=== PATIENT | female | born 1975 | race Caucasian/White ===

== ENCOUNTER 2020-05-21 11:48 | Outpatient (CLI) | payer BC, SELFPAY ==
--- NOTE | ~2020-05-21 | MM_ITS ---
EXAMINATION: MM screening malcom BI w catie HISTORY: Screening mammogram TECHNIQUE: Craniocaudal and mediolateral oblique 3-D tomosynthesis images were obtained and synthetic 2-D images were generated. CAD analysis was submitted and interpreted. COMPARISON: No prior mammogram is available for comparison at this institution. BREAST PARENCHYMAL COMPOSITION: There are scattered areas of fibroglandular density. FINDINGS: There is asymmetry in the upper outer left breast. Comparison with prior mammogram is recom mended. Otherwise no suspicious mass, architectural distortion, malignant calcification, skin thickening or r etraction of either breast is evident. IMPRESSION: 1. Nonspecific asymmetry of the upper outer quadrant of the left breast 2. Comparison with any prior available mammogram is recommended. BI-RADS Category 0: Incomplete: Needs additional imaging evaluation. Reviewed, dictated and finalized at location A. R ASSEMBLER
== END 2020-05-21 11:49 | disposition home or self-care (01) ==
LOC: ANHIMG 11:51
PROVIDERS: PCP Family Medicine; Visit Provider Obstetrics & Gynecology
DX: Z12.31 Encounter for screening mammogram for malignant neoplasm of breast (principal); R92.8 Other abnormal and inconclusive findings on diagnostic imaging of breast
CPT/HCPCS: 77063; 77067

== ENCOUNTER 2020-08-01 11:48 | Outpatient (CLI) | payer BC, SELFPAY ==
--- NOTE | ~2020-08-01 | MMUS_ITS ---
EXAMINATION: MM diagnostic malcom LT w catie, US breast LT limited HISTORY: Focal asymmetry of the left breast TECHNIQUE: Additional 3-D tomosynthesis images of the left breast were performed and synthetic 2-D im ages were generated. CAD analysis was submitted and interpreted. High resolution limited left breast ultrasound was performed. COMPARISON: 05/21/2020 BREAST PARENCHYMAL COMPOSITION: There are scattered areas of fibroglandular density. FINDINGS: MAMMOGRAPHIC FINDINGS: Focal asymmetry in the upper outer quadrant of the left breast is less prominent with spot compressio n. No suspicious mass, calcification, or architectural distortion are identified. ULTRASOUND: There is no evidence of focal abnormal solid or cystic lesion in the vicinity of the left breast foca l asymmetry. A benign appearing intramammary lymph node is seen at the 3:00 location. IMPRESSION: 1. No mammographic or sonographic evidence of malignancy. 2. Recommend routine screening mammography in one year. BI-RADS Category 2: Benign finding(s). Reviewed, dictated and finalized at location A. RTMENT OF MATHEMATICS CHAIR IMPRESSION: 1. No mammographic or sonographic evidence of malignancy. 2. Recommend routine screening mammography in one year. BI-RADS Category 2: Benign finding(s).
== END 2020-08-01 11:49 | disposition home or self-care (01) ==
PROVIDERS: PCP Family Medicine; Visit Provider Obstetrics & Gynecology
DX: R92.8 Other abnormal and inconclusive findings on diagnostic imaging of breast (principal)
CPT/HCPCS: 76642; 77061; 77065; G0279

== ENCOUNTER 2021-09-02 18:12 | Outpatient (CLI) | payer BC, SELFPAY ==
--- NOTE | ~2021-09-02 | XR_ITS ---
EXAMINATION: XR foot RT min 3V DATE: 09/02/2021 18:31 INDICATION: Plantar right foot pain TECHNIQUE: Dorsoplantar, two oblique and lateral views of the right foot were obtained. COMPARISON: None. FINDINGS: Alignment is normal. No fracture. Joint spaces are normal. Moderate-sized plantar calcaneal spur. Bon e islands at the head of the first proximal phalanx and base of the first distal phalanx. Soft tissue s are unremarkable. IMPRESSION: 1. Moderate-sized plantar calcaneal spur. Reviewed, dictated and finalized at location A. PLATER
== END 2021-09-02 18:13 | disposition home or self-care (01) ==
LOC: CHSIMG 18:13
PROVIDERS: PCP Family Medicine; Visit Provider Family Medicine
DX: M79.671 Pain in right foot (principal)
CPT/HCPCS: 73630

== ENCOUNTER 2021-11-26 08:31 | Outpatient (CLI) | payer BC, SELFPAY ==
--- NOTE | ~2021-11-26 | MM_ITS ---
EXAMINATION: MM screening malcom BI w catie HISTORY: Screening mammogram TECHNIQUE: Craniocaudal and mediolateral oblique 3-D tomosynthesis images were obtained and synthetic 2-D images were generated. CAD analysis was submitted and interpreted. COMPARISON: 08/01/2020 diagnostic left mammogram and limited left breast ultrasound 05/21/2020 bilateral screening mammogram BREAST PARENCHYMAL COMPOSITION: There are scattered areas of fibroglandular density. FINDINGS: There is no evidence of suspicious mass, calcification, or architectural distortion to sugg est malignancy in either breast. There has been no suspicious interval change. IMPRESSION: 1. No mammographic evidence of malignancy. 2. Recommend routine screening mammography in one year. BI-RADS Category 1: Negative Reviewed, dictated and finalized at location A.
== END 2021-11-26 08:32 | disposition home or self-care (01) ==
PROVIDERS: PCP Family Medicine; Visit Provider Obstetrics & Gynecology
DX: Z12.31 Encounter for screening mammogram for malignant neoplasm of breast (principal)
CPT/HCPCS: 77063; 77067

== ENCOUNTER 2022-06-03 12:12 | Outpatient (CLI) | payer BC, SELFPAY | END 2022-06-03 12:13 | disposition home or self-care (01) | LOC: ANHSURGERY 12:15 | PROVIDERS: PCP Family Medicine; Visit Provider Obstetrics & Gynecology | DX: Z01.818 Encounter for other preprocedural examination (principal); N93.9 Abnormal uterine and vaginal bleeding, unspecified | CPT/HCPCS: 36415; 86850; 86900; 86901 ==

== ENCOUNTER 2022-06-09 15:42 | Observation (INO) | payer BC, SELFPAY ==
[2022-05-26 14:41] VITALS: BMI 34.3
--- NOTE | 2022-05-26 15:02 | SUR.PREOP ---
Report to the Outpatient Waiting Room, entrance under the green pavilion located off [facility], at time 1000 on date 06/09/22. Planned Procedure Time: 1200. Time changes happen often and if your time is changed the preop area will call you the afternoon before. - You and your visitor will be asked to self-screen and do not enter if you have any COVID symptoms. - Only one visitor is requested with a max of two and NO children visitors are allowed at this time. - The patient visitor may be requested to leave or wait in car when not with patient due to distancing restrictions. - A mask is optional within the hospital. Patients may have clear liquids (water, carbonated beverages, clear teas, apple juice) until 3 hours prior to surgery with a maximum of 20 ounces. - No food from midnight until time of surgery - Infants may have breast milk until 4 hours before surgery, infant formula 6 hours prior to surgery. - Children will be allowed to drink immediately following surgery. If applicable, please bring a bottle or sippy cup to assist with drinking. Juice, water, soda, and popsicles are readily available. For infants on formula, please bring formula the day of surgery. Pacifiers are allowed. Take the following medications with a SIP of water the morning of surgery: ____n/a Medications to discontinue per physician vitamins 3 days prior to procedure Date to take last dose Please no make-up, nail faroese, hairspray, perfume, deodorant, or body powder the day of surgery. No jewelry (including any body piercings) or valuables the day of surgery, leave them at home. Please take a shower or bath the night before, or the morning of, surgery with an antibacterial soap. Wear comfortable, loose fitting clothing. Children are encouraged to wear pajamas. - Jewelry must be removed prior to entering the operating room. Rings and piercings that are not removed may be cut off. - The hospital will not accept responsibility for valuables. - Please leave all valuables, including medications, at home the day of surgery. If you are going home after surgery, a licensed tow motor driver must drive you home. - NO public transportation without another adult if you receive anesthesia. - We recommend that an adult stay with you for 24 hours following discharge. - We also recommend that you do not drive, make important decision, drink alcoholic beverages, or take any drugs that were not prescribed by your health care provider for at least 24 hours after your discharge time. For Pediatric surgeries, we recommend two adults accompany the child home. Follow any additional instructions given to you from your surgeon. If you or anyone in your household have experienced Covid symptoms in the past week, please notify your surgeon or the nurse liaison at the phone number below for possible testing. Telephone instructions given to __patient___and asked if any additional questions and then verbalized understanding. Patient advised to call surgeon office or pre surgery nurse liaison [phone] if any additional questions.
--- NOTE | 2022-06-08 13:51 | WPDANESEPPF ---
Anes - Initial Pre Proc Eval Procedure: Operation Date: 06/09/22 12:00 Proposed Procedures p Robotic Assisted Total Vaginal Hysterectomy with Bilateral Salpingectomy - Telly King MD Date/Time: 06/08/22 13:51 Surgeon: Telly King MD Pre Op Diagnosis: irreg bleeding, failed ablation, pelvic pain Patient Data Age: 47 Gender: F Height: 1.63 m Weight: 90.72 kg Allergies Allergy/AdvReac Type Severity Reaction Status Date / Time No Known Allergies Allergy Verified 06/09/22 10:06 Home Medications Medication Instructions Recorded Confirmed Type Lactobacillus 1 cap PO DAILY 05/26/22 06/09/22 History acidophilus-Bifidobac.animalis 2.5 billion cell capsule (Daily Probiotic) multivitamin 1 tablet PO DAILY 05/26/22 06/09/22 History Patient hx anesthesia problems: none Family hx anesthesia problems: none Results Review: All pre-operative results and documents have been reviewed as part of the pre-operative evaluation. 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 Obesity Plantar fasciitis of right foot Wears glasses Surgical History Surgical History (Updated 09/07/21 @ 16:13 by Cristal Escobar) H/O section Hx of tubal ligation 2017 per patient questionnaire Family History Family History (Updated 09/07/21 @ 16:14 by Cristal Escobar) Other Depression Diabetes mellitus HLD (hyperlipidemia) Social History Social History (Updated 09/07/21 @ 16:14 by Cristal Escobar) Smoking status: Never smoker Alcohol intake: current Substance use: never Substance use type: does not use Living arrangements: with family 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 [employer] Gender identity (if verbalized by the patient): Female Spiritual care concerns: No Anes - Eval Final PreProcedure Day of Procedure 06/08/22 13:51 Patient weight: obese Heart: regular rate and rhythm Lungs: clear to auscultation and normal air movement Airway: Mallampati scale class II Neurological: alert and oriented Last oral intake: >/= 8 hours ASA classification: II Emergent: no Anesthetic plan: proceed Anesthesia type and monitoring: general ETT Results Review: All pre-operative results and documents have been reviewed as part of the pre-operative evaluation. Informed Consent: The patient's anesthetic plan and its attendant risks and benefits were discussed with the patient/family/POA. Questions were solicited and answers provided to the satisfaction of the patient/family/POA.
[2022-06-09] VITALS (8 sets, daily range): BP systolic 111–143; BP diastolic 74–95; PULSE 65–91; RESP 14–18; TEMP 36.4–36.9; O2SAT 93–100
[2022-06-09] MEDS: ACETAMINOPHEN 500 MG TABLET 1000 MG PO (10:15)
[2022-06-09] MEDS: LACTATED RINGERS 1,000 ML 30 ML IV CONT ×2 (10:35→14:37)
[2022-06-09] MEDS: KETOROLAC 15 MG/ML VIAL (*BKC) IV PUSH (10:44)
--- NOTE | 2022-06-09 11:40 | PM.IMHP ---
H&P: HPI History of Present Illness Date/Time: 06/09/22 11:40 Chief Complaint: Pain and bleeding. Narrative: 47 y/o who has had a tubal ligation and endometrial ablation. She initially had good results, but has started to have irregular episodes of vaginal bleeding over the last 6 months or so. She also has had a real increase in pain with bleeding. She is requesting definitive management with hysterectomy. 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 Gender identity (if verbalized by the patient): Female Spiritual care concerns: No Meds Home Medications and Allergies Home Medications Medication Instructions Recorded Confirmed Type Lactobacillus 1 cap PO DAILY 05/26/22 06/09/22 History acidophilus-Bifidobac.animalis 2.5 billion cell capsule (Daily Probiotic) multivitamin 1 tablet PO DAILY 05/26/22 06/09/22 History Allergies Allergy/AdvReac Type Severity Reaction Status Date / Time No Known Allergies Allergy Verified 06/09/22 10:06 Vital Signs Vital Signs - 24 hr 06/09/22 10:09 Temperature 36.9 C Pulse Rate 77 Respiratory Rate 16 Blood Pressure 143/95 H Pulse Oximetry 100 Oxygen Delivery Room Air Exam Const: Orientation/consciousness: patient oriented x3 Other: Well-developed, well-nourished female in no acute distress. Neck: Thyroid: thyroid normal Lymphatic: no lymphadenopathy noted (in neck, axilla or inguinal nodes) Resp: Effort & Inspection: normal respiratory effort Auscultation: clear to auscultation bilaterally Cardio: Rate: regular rate Rhythm: regular rhythm Heart sounds: S1 normal heart sound present and S2 normal heart sound present GI: Other: ABD: Soft, nontender, nondistended. No guarding or rebound tenderness. No hepatosplenomegaly. : General: Yes no CVA tenderness Other: External genitalia: normal female hair distribution, without lesion. Urethral meatus: no lesion, non prolapsed. Bladder: no mass, nontender Vagina: well-estrogenized, without lesion or discharge. No cystocele or rectocele. Cervix: no lesion or discharge. Uterus: small, anteverted, freely mobile, nontender Adnexa: no mass or tenderness. Anus/perineum: no lesions, nontender Back/Spine/Pelvis: Back: no CVA tenderness Skin: General skin exam: normal color and no rashes or lesions noted Neuro: General: patient oriented x3 Extrem: Other: Extremities: nontender with no edema Psych: Mental Status: mental status grossly normal Affect: normal affect Assessment and Plan Assessment and plan (1) Metrorrhagia: Code(s): N92.1 - Excessive and frequent menstruation with irregular cycle Status: Acute Assessment and Plan: A: Metrorrhagia with dysmenorrhea, refractory to conservative treatment. P: We have reviewed medical as well as surgical treatment options. She prefers the latter. Specifically, I have offered her a robotic assisted to
--- NOTE | 2022-06-09 11:54 | WPDHPUPDATE1 ---
History and Physical Update Update Date/Time: 06/09/22 11:54 History and Physical has been reviewed, including an updated exam of the patient. There are NO changes in the patient's condition. Risks, benefits, and alternatives have been discussed and questions answered. Patient agrees to proceed with procedure.
[2022-06-09] MEDS: ceFAZolin 2 GM/D5W 50 ML 2 GM/50 ML BAG IVPB (12:00)
--- NOTE | 2022-06-09 14:21 | P.OP_ITS ---
Procedure Note - Detailed Date of Procedure 06/09/22 Pre-op Diagnosis Metrorrhagia Dysmenorrhea Post-op Diagnosis Same Procedure Performed Robotic assisted total vaginal hysterectomy with bilateral salpingectomies. Biopsy of peritoneum. Cautery of endometriosis implant. Surgeon Telly King MD Anesthesia General Findings Dense adhesions between uterus and anterior pelvic wall. Fallopian tubes with evidence of prior tubal ligation. Ovaries unremarkable. Endometriosis implants in posterior cul-de-sac. Description of Procedure The patient was taken to the operating room where general endotracheal anesthesia was administered. She was prepared and draped in the usual sterile fashion in the dorsal lithotomy position. The bladder was drained with Gray catheter. The cervix was visualized and the anterior lip was grasped using a single-tooth tenaculum. The cervix was gently dilated using Hegar dilators. The CALLUM 2 uterine manipulator was then placed and the tenaculum was removed. Gloves were changed and attention was turned to the abdomen. A supraumbilical skin incision was made with the scalpel. The Veress needle was advanced and pneumoperitoneum was administered using carbon dioxide gas. The bladeless trocar was then advanced. Intraperitoneal placement was confirmed using the laparoscope. Lateral ports and an facilities maintenance assistant port were all placed using bladeless trocars under direct laparoscopic visualization. She was placed in Trendelenburg position and the patient cart was docked. I assumed the console. The ureters were visualized bilaterally. The round ligament on the right was divided. The Fallopian tube was dissected off the right ovary. The uteroovarian ligament was divided. The broad ligament was divided, skeletonizing the uterine artery on the right. Dense adhesions in the anterior cul-de-sac were lysed. The bladder was reflected away. The left side was similarly dissected. Colpotomy was performed circumferentially. The specimen was removed and passed off to be sent to pathology. One endometriosis implant was excised sharply and passed off to be sent to pathology. A second implant was cauterized. The vaginal cuff was reapproximated using 0 Vicryl in interrupted [id number] fashion. The pelvis was irrigated copiously using warmed normal saline. Rigorous hemostasis was assured. HemaDerm was applied to the vaginal cuff. The pedicles were inspected once again. The ports were then withdrawn and the gas was allowed to escape. The skin incisions were reapproximated using 4 0 Monocryl in interrupted subcuticular fashion. Dermaflex was applied externally. Sponge, lap, needle and instrument counts were correct. The patient was awakened and taken to the recovery room in stable condition. I was present and scrubbed through the entire procedure. Implants None Estimated Blood Loss 100 Drains Yes (Gray) Packing No Pathology Yes (Uterus, cervix, bilateral Fallopian tubes, biopsy of peritoneum of posterior cul-de-sac.) Complications None Condition Stable Disposition PACU
--- NOTE | 2022-06-09 14:32 | PM.DS ---
DS: Admitting Diagnosis Discharge Date 06/10/22 Admitting Diagnosis Metrorrhagia Dysmenorrhea DS: Discharge Diagnosis Discharge Diagnosis (1) Dysmenorrhea: Code(s): N94.6 - Dysmenorrhea, unspecified Status: Acute (2) Metrorrhagia: Code(s): N92.1 - Excessive and frequent menstruation with irregular cycle Status: Acute DS: Summary Hospital Course Hospital Course: Admitted on date of scheduled surgery. Please see op note for details. Postoperatively, she did well. Was able to go home on POD#1. Time Spent with Patient Time attestation: Total time spent providing and/or coordinating discharge services: DS: Data Data Completed and Pending Pending studies at discharge: Pending at discharge 06/09/22 12:38 Surgical [PTH] Routine 06/09/22 13:49 Surgical [PTH] Routine Discharge Plan Discharge Attending physician on discharge: Telly King Discharging Clinician: Telly King Patient Disposition: Home, Self-Care Activity: may shower, may drive after 2 weeks and pelvic rest Diet: regular Wound Care Instructions: incision open to air Discharge Instructions: Call or return if temperature above 100.4? F, increased abdominal pain, increased vaginal bleeding or any new problems. Stand Alone Forms: General Discharge Instructions Follow-up/Referrals: Telly King MD [Physician] - 3 Weeks Discharge Medications: New hydrocodone-acetaminophen 5-325 mg tablet 1 - 2 tablet PO Q6H Qty: 30 0RF Continued multivitamin Tablet 1 tablet PO DAILY Daily Probiotic 2.5 billion cell Capsule 1 cap PO DAILY Date of admission: 06/09/22 15:42 Primary Care Provider: Zafar Zhang Admitting Provider: Telly King Attending physician on admission: Telly King Condition: Stable
[2022-06-09] MEDS: ONDANSETRON INJ 4 MG/2 ML VIAL IV PUSH (15:17)
[2022-06-09] MEDS: SCOPOLAMINE 1.5 MG PATCH TRANSDERM (15:38)
[2022-06-09] MEDS: diphenhydrAMINE HCl INJ 50 MG/ML VIAL 25 MG IV PUSH (15:38)
[2022-06-09] MEDS: HYDROcodone/acetaminophen (*CRX) 10-325 MG TABLET 1 TAB PO (20:22)
[2022-06-09] MEDS: ENOXAPARIN 40 MG/0.4 ML SYRINGE SUB-Q (21:28)
[2022-06-10 00:40] VITALS: BP 138/82; PULSE 88; RESP 18; TEMP 36.9; O2SAT 98
[2022-06-10] MEDS: HYDROcodone/acetaminophen (*CRX) 5-325 MG TABLET 1 TAB PO ×2 (00:49→08:49)
[2022-06-10 05:38] LABS: Basophils Percent Auto 0.1 % (0.2-1.2); Hematocrit 38.4 % (37.0-47.0); Hemoglobin 12.6 g/dL (12.0-15.0); Immature Granulocyte Absolute 0.06 K/mm3 (0.00-0.031); Immature Granulocyte Percent A 0.5 % (0-0.5); Lymphocytes Absolute Auto 1.57 K/mm3 (0.9-3.2); Lymphocytes Percent Auto 13.4 % (18.3-44.2); Mean Corpuscular HGB Conc 32.8 g/dl (32-36); Mean Corpuscular Hemoglobin 27.4 pg (26-34); Mean Corpuscular Volume 83.5 fl (80-100); Mean Platelet Volume 11.7 fl (7.4-10.4); Monocytes Absolute Auto 0.8 K/mm3 (0.1-0.6); Neutrophils Absolute Auto 9.3 K/mm3 (1.3-6.7); Platelet Count Result 215 k/mm3 (150-375); White Blood Count 11.7 K/mm3 (4.5-10.0)
[2022-06-10 05:46] VITALS: BP 116/74; PULSE 79; RESP 18; TEMP 37; O2SAT 98
[2022-06-10] MEDS: DOCUSATE SODIUM 100 MG CAPSULE PO (08:50)
[2022-06-10] MEDS: MULTIVITAMINS THERAPEUTIC TAB (*BKC) 1 TABLET PO (08:54)
[2022-06-10] MEDS: ACIDOPHILUS/BULGARICUS CHEWABLE TABLET 1 TABLET PO (08:54)
[2022-06-10 09:25] VITALS: BP 138/85; PULSE 77; RESP 16; TEMP 36.9; O2SAT 99
--- NOTE | 2022-06-10 10:03 | PM.GYNPNOP ---
ELECTRIC ORGAN ASSEMBLER - A/P Assessment and plan (1) Dysmenorrhea: Code(s): N94.6 - Dysmenorrhea, unspecified Status: Acute Assessment and Plan: A: POD#1, s/p robotic assisted TVHBS. Doing well. P: Home to f/u 2-3 weeks in office. (2) Metrorrhagia: Code(s): N92.1 - Excessive and frequent menstruation with irregular cycle Status: Acute Postoperative Procedures: Procedures Operation Date: 06/09/22 12:00 Actual Procedure Side Surgeon p Robotic Assisted Total Vaginal Hysterectomy with Bilateral Salpingectomy Bilateral Telly King MD Postoperative day: 1 Time Spent With Patient Time with patient: less than 15 minutes ELECTRIC ORGAN ASSEMBLER- PN:Subj Post-Op Subjective Date/time seen: 06/10/22 10:03 Interval history: Pain OK. Tolerating diet. Voiding. Would like to go home. Exam Narrative: AVSS I/O OK ABD soft, nontender. Incisions c/d/i. EXT nontender ELECTRIC ORGAN ASSEMBLER - PN: Obj Data Vital Signs Vital Signs: Vital Signs - 24 hr 06/09/22 10:09 06/09/22 14:37 06/09/22 14:50 Temperature 36.9 C 36.6 C Pulse Rate 77 86 80 Respiratory Rate 16 18 18 Blood Pressure 143/95 H 111/74 125/80 Pulse Oximetry 100 100 100 Oxygen Delivery Room Air Simple Face Mask Simple Face Mask Oxygen Flow Rate 6 6 06/09/22 15:05 06/09/22 15:20 06/09/22 15:35 Temperature Pulse Rate 84 65 84 Respiratory Rate 18 17 14 Blood Pressure 127/78 120/78 121/84 Pulse Oximetry 99 93 95 Oxygen Delivery Room Air Room Air Room Air Oxygen Flow Rate 06/09/22 16:22 06/09/22 16:22 06/09/22 19:35 Temperature 36.4 C L 36.7 C Pulse Rate 87 87 91 Respiratory Rate 16 16 16 Blood Pressure 125/79 133/94 H Pulse Oximetry 93 93 98 Oxygen Delivery Room Air Oxygen Flow Rate 06/10/22 00:40 06/10/22 05:46 Temperature 36.9 C 37.0 C Pulse Rate 88 79 Respiratory Rate 18 18 Blood Pressure 138/82 116/74 Pulse Oximetry 98 98 Oxygen Delivery Oxygen Flow Rate Intake/Output Intake/Output: Intake & Output 06/07/22 06/08/22 06/09/22 06/10/22 23:59 23:59 23:59 23:59 Intake Total 600 650 Output Total 520 1525 Balance 80 -875 Meds/Results Medications: Active Medications Generic Name Dose Route Start Last Admin Trade Name Freq PRN Reason Stop Dose Admin Hydrocodone Bitart/Acetaminophen 1 tab 06/09/22 15:42 06/10/22 08:49 Hydrocodone/Acetaminophen (*Crx) 5-325 Mg Tablet PO 1 tab Q3H PRN Administration Pain Rated 5 or Less Hydrocodone Bitart/Acetaminophen 1 tab 06/09/22 15:42 06/09/22 20:22 Hydrocodone/Acetaminophen (*Crx) 10-325 Mg Tablet PO 1 tab Q3H PRN Administration Pain Rated 6 or Greater Docusate Sodium 100 mg 06/09/22 17:00 06/10/22 08:50 Docusate Sodium 100 Mg Capsule PO 100 mg BID CHRISTA Administration Enoxaparin Sodium 40 mg 06/09/22 21:00 06/09/22 21:28 Enoxaparin 40 Mg/0.4 Ml Syringe SUB-Q 40 mg DAILY CHRISTA Administration Dextrose/Sodium Chloride 1,000 mls @ 125 mls/hr 06/09/22 15:42 Dextrose 5% Sodium Chloride 0.45% IV CONT .Q8H CHRISTA Ibuprofen 600 mg 06/09/22 15:42 Ibuprofen 600 Mg Tablet PO Q6H PRN Cramping Ketorolac Tromethamine 30 mg 06/09/22 17:11 Ketorolac 30 Mg/Ml Vial (*Bkc) IV PUSH Q6H PRN Pain Rated 4-6 Lactobacillus Acidophilus 1 tablet 06/10/22 09:00 06/10/22 08:54 Acidophilus/Bulgaricus Chewable Tablet PO 07/10/22 08:59 1 tablet DAILY CHRISTA Administration Metoclopramide HCl 10 mg 06/09/22 15:42 Metoclopramide Hcl Inj 10 Mg/2 Ml Vial IV PUSH Q6H PRN Nausea Morphine Sulfate 4 mg 06/09/22 15:42 Morphine Sulfate (*Crx) 4 Mg/Ml Inj IV PUSH Q4H PRN Pain Rated 7-10 Multivitamins Therapeutic 1 tablet 06/10/22 09:00 06/10/22 08:54 Multivitamins Therapeutic Tab (*Bkc) PO 1 tablet DAILY [facility] Administration Naloxone HCl 0.1 mg 06/09/22 15:42 Naloxone Hcl 0.4 Mg/Ml Vial IV PUSH Q2M PRN Respiratory rate less than 10 Ondansetron HC
--- NOTE | 2022-06-10 10:28 | P.PNAN_ITS ---
Anes - Prog Note Post-Op Date/Time: 06/10/22 10:28 Cardiovascular status: normal Respiratory status: normal Airway patency: baseline Mental status: baseline Post-Op hydration status: normal Vital Signs: Last Vital Signs Temp 36.9 C 06/10/22 09:25 Pulse 77 06/10/22 09:25 Resp 16 06/10/22 09:25 BP 138/85 06/10/22 09:25 Pulse Ox 99 06/10/22 09:25 O2 Del Method Room Air 06/10/22 08:49 O2 Flow Rate 6 06/09/22 14:50 Pain Score (VAS): 08/06 I/O: Intake & Output 06/09/22 06/10/22 06/10/22 23:59 07:59 15:59 Intake Total 650 Output Total 500 1525 Balance -500 -875 Laboratory Tests 06/10/22 04:49 06/10/22 04:49 WBC 11.7 H RBC 4.60 Hgb 12.6 Hct 38.4 MCV 83.5 MCH 27.4 MCHC 32.8 RDW 13.0 Plt Count 215 MPV 11.7 H Immature Gran % (Auto) 0.5 Neut % (Auto) 79.0 H Lymph % (Auto) 13.4 L [place] % (Auto) 7.0 Eos % (Auto) 0.0 Baso % (Auto) 0.1 L Lymph # (Auto) 1.57 [place] # (Auto) 0.8 H Eos # (Auto) 0.0 Baso # (Auto) 0.0 Abs Immat Gran (auto) 0.06 H Absolute Neuts (auto) 9.3 H Absolute Nucleated RBC 0.0 Nucleated RBC % 0.0 Post-procedural complaints: none Patient Feedback: Patient satisfied with anesthetic care.
== END 2022-06-10 11:15 | disposition home or self-care (01) ==
LOC: ANHOB2 15:45
PROVIDERS: Admitting Provider Obstetrics & Gynecology; PCP Family Medicine; Visit Provider Obstetrics & Gynecology
PROC: (CPT 58552; principal; 2022-06-09 12:00)
DX: N92.1 Excessive and frequent menstruation with irregular cycle (principal); N94.6 Dysmenorrhea, unspecified; N80.30 Endometriosis of pelvic peritoneum, unspecified; N88.8 Other specified noninflammatory disorders of cervix uteri; N83.8 Other noninflammatory disorders of ovary, fallopian tube and broad ligament; D25.9 Leiomyoma of uterus, unspecified; E66.9 Obesity, unspecified; Z68.36 Body mass index [BMI] 36.0-36.9, adult; F10.90 Alcohol use, unspecified, uncomplicated; Z98.891 History of uterine scar from previous surgery
CPT/HCPCS: 58552; 49321; S2900; 36415; 85025; 88305; 88307; 96372; A9270; G0378; G0379; J0690; J1100; J1170; J1200; J1650; J1885; J2250; J2405; J2704; J2710; J3010; J7030; J7120

== ENCOUNTER 2023-10-10 16:44 | Outpatient (CLI) | payer OTHER, SELFPAY ==
--- NOTE | ~2023-10-10 | XR_ITS ---
EXAMINATION: XR foot LT min 3V DATE: 10/10/2023 17:09 INDICATION: Left foot pain. TECHNIQUE: 4 views of left foot were obtained. COMPARISON: None. FINDINGS: There is a bunionette deformity of the fifth digit. No fracture. There is mild osteoarthrit is of first metatarsophalangeal joint and talonavicular joint. There is an enthesophyte at plantar as pect of calcaneal tuberosity. IMPRESSION: 1. Mild polyarticular osteoarthritis. 2. Bunionette. Reviewed, dictated and finalized at location E.
== END 2023-10-10 16:45 | disposition home or self-care (01) ==
LOC: CHSIMG 16:50
PROVIDERS: PCP Family Medicine; Visit Provider Family Medicine
DX: M79.672 Pain in left foot (principal); M19.072 Primary osteoarthritis, left ankle and foot; M21.622 Bunionette of left foot
CPT/HCPCS: 73630

== ENCOUNTER 2024-10-11 13:55 | Outpatient (CLI) | payer OTHER, SELFPAY ==
--- NOTE | ~2024-10-11 | MM_ITS ---
EXAMINATION: MM screening malcom BI w catie HISTORY: Screening TECHNIQUE: Craniocaudal and mediolateral oblique 3-D tomosynthesis images were obtained and synthetic 2-D images were generated. CAD analysis was submitted and interpreted. COMPARISON: Comparison to multiple prior studies sequentially, with oldest reviewed study dated 04/28. BREAST PARENCHYMAL COMPOSITION: Dense: The breasts are heterogeneously dense, which may obscure small masses FINDINGS: Left breast asymmetries are stable. There is no evidence of suspicious mass, calcification, or architectural distortion to suggest malignancy in either breast. There has been no suspicious int erval change. IMPRESSION: 1. No mammographic evidence of malignancy. 2. Recommend routine screening mammography in one year. BI-RADS Category 2: Benign finding(s). Reviewed, dictated and finalized at location B.
--- OUTSIDE RECORDS SUMMARY | 2024-10-11 14:13 | XMS_ITS | Clinical Summary ---
Author Organization [facility] Address [address] [place] [address] Care Team Providers Care Flavoring Machine Operator Name Role Phone Zafar Zhang MD Primary Care Provider Source Comments [facility],non-owned Affiliates and Associated Physician Practices is amultiple site organization consisting of ambulatory clinics and hospital sitesin [place], [place], [place] and [place]. This disclosure is being madepursuant to the Care Everywhere program and may not contain all information available regarding this patient. Last updated 18.[facility] Allergies No known active allergies Medications * Be aware that medications may not be up to date on this document. Alwaysverify current medications with the patient. Vit-Fe Fumarate-FA ( RX 1) 60-1 MG tablet Take 1 Tab by mouth once daily. Active ibuprofen (MOTRIN) 600 MG tablet Take 1 Tab by mouth every 6 hours as needed for Pain. 80 Tab 0 2 Active ferrous sulfate 325 (65 FE) MG tablet Take 1 Tab by mouth 2 times daily with breakfast and dinner. 30 Tab 2 2 Active docusate sodium (COLACE) 100 MG capsule Take 1-2 Caps by mouth nightly as needed for Constipation. 60 Cap 1 2 Active Active Problems Problem Noted Date Diagnosed Date PROM (premature rupture of membranes) 08/23/2011 Overview (08/23/2011): PPROM 08/23/11 Threatened labor, antepartum 08/23/2011 Supervision of high-risk 08/23/2011 Overview (08/25/2011): Dating: LMP and undoc 1st trimester US PNL: B-/I/-/- HIV: NR H/H/Plt: Hgb Elec: QS: neg CF: Pap: GCT: 130 GBS: pending Height: 5' 4 (162.6 cm) Weight: 224 lb (101.606 kg) BMI (Calculated): 38.53 Shoe size 8 Rh negative state in antepartum period 2 Overview (08/23/2011): S/p rhogam this History of LEEP (loop electr osurgical excision procedure) of cervix complicating 08/23/2011 Overview (08/23/2011): 2010 Immunizations Immunization Administration Dates Next Due INFLUENZA VACCINE 08/29/2011 Rho D Immune Globulin 08/28/2011 TDAP (7yrs+) 08/29/2011 Social History Tobacco Use Types Packs/Day Years Used Date Smoking Tobacco: Never Smokeless Tobacco: Never Alcohol Use Standard Drinks/Week Comments No 0 (1 standard drink = 0.6 oz pur e alcohol) Comments Unknown Sex and Gender Information Value Date Recorded Sex Assigned at Not on file 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 Gender Identity Not on file Sexual Orientation Not on file Last Filed Vital Signs Vital Sign Reading Time Taken Comments Blood Pressure 140/94 08/31/2011 8:30 AM SHIP WASHER Pulse 92 08/31/2011 8:30 AM SHIP WASHER Temperature 37 C (98.6 F) 08/31/2011 8:30 AM SHIP WASHER Respiratory Rate 16 08/31/2011 8:30 AM SHIP WASHER Oxygen Saturation 99% 08/27/2011 4:25 AM SHIP WASHER Inhaled Oxygen Concentration - - Weight 101.6 kg (224 lb) 08/25/2011 12:30 PM SHIP WASHER Height 162.6 cm (5' 4 ) 08/25/2011 12:30 PM SHIP WASHER Body Mass Index 38.45 08/25/2011 12:30 PM SHIP WASHER Plan of Treatment Health Maintenance Due Date Last Done Comments COLOGUARD (AGES 45-75) - COL ON CA SCREENING 1977 COLON MONITORING 1977 COLONOSCOPY - COLON CA SCREENING 1977 CT COLONOGRAPHY - COLON CA SCREENING 1977 Colorectal Cancer Screening 1977 FIT - COLON CA SCREENING 1977 FLEX SIG - COLON CA SCREENING 1977 LIPID TESTING 1977 MAMMOGRAM 1977 PAP SMEAR 1977 HIV SCREENING 1992 HEPATITIS C SCREENING 04/10/1995 HEPATITIS B VACCINE (1 of 3 - 19+ 3-dose series) 1996 DTAP/TDAP/TD VACCINES (2 - T d or Tdap) 08/28/2021 08/29/2011 COVID-19 VACCINE (2023-2 5 season) 2024 DEPRESSION SCREENING 06/27/2024 INFLUENZA VACCINE (Season Ended) 2025 08/29/19 12 ZOSTER VACCINE (1 of 2) 2027 HIB VACCINE Aged Out No longer eligi ble based on patient's age to complete this topic HPV VACCINE Aged Out No longer eligi ble based on patient's age to complete this topic MENINGOCOCCAL (Group B) VACC INE SHARED DECISION-MAKING Aged Out No longer eligibl e based on patient's age to complete this topic MENINGOCOCCAL GROUPS A/C/Y/W VACCINE Aged Out No longer eligible b ased on patient's age to complete this topic PNEUMOCOCCAL VACCINE Aged Out No long er eligible based on patient's age to complete this topic Advance Directives * FULL RESUSCITATION (Latest Code Status on File) Date Activated Date Inactivated Comments 08/23/2011 7:10 AM 09/01/2011 5:01 AM * FULL RESUSCITATION Date Activated Date Inactivated Comments 08/23/2011 7:05 AM 08/23/2011 7:07 AM Care Teams Flavoring Machine Operator Relationship Specialty Start Date End Date Zafar Zhang MD [address] [place] [id number] PCP - General 06/16/22
--- OUTSIDE RECORDS SUMMARY | 2024-10-11 14:13 | XMS_ITS | Clinical Summary ---
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 Gender Identity Not on file Sexual Orientation Not on file Plan of Treatment Health Maintenance Due Date Last Done Comments HEPATITIS B VACCINES (1 of 3 - 19+ 3-dose series) 1996 HPV/Cotest (21-29) 1998 PAP SMEAR 1998 CERVICAL CANCER SCREENING 2007 HPV/Cotest (30-65) 2007 PAP SMEAR 2007 BREAST CANCER SCREENING 04/19/2019 04/19/2018 DTAP/TDAP/TD VACCINES (2 - T d or Tdap) 08/28/2021 08/29/2011 COLORECTAL SCREENING 2022 Colorectal Cancer Screening 2022 FIT-DNA Q 3 years 2022 FIT/FOBT Q 1 year 2022 Flex Sig/CT Colonography Q 5 years 2022 INFLUENZA VACCINE (#1) 2024 PNEUMOCOCCAL VACCINE 0-49 YEARS Aged Out No longer eligible based on patient's age to complete this topic Procedures Procedure Name Priority Date/Time Associated Diagnosis Comments MAMMO SCREEN BILAT W OR WO CAD Routine 04/19/2018 12:05 PM CDT Visit for screening mammogram from Last 3 Months or Most Recently Relevant to Health Maintenance Results * MAMMO SCREEN BILAT W OR WO CAD (04/19/2018 12:05 PM CDT) Anatomical Region Laterality Modality Breast Bilateral Mammography 04/19/2018 12:0 5 PM CDT Addenda Addendum by Marylou Cooper MD on 05/02/2018 3:50 PM ANIMAL CONTROL LICENSING WORKER ADDENDUM: No prior mammograms could be found for comparison. FINDINGS: There is no concerning mass, suspicious calcifications or architectural distortion identified in either breast. Overall assessment: BI-RADS Category 1. Negative. Annual mammography is recommended. Impressions 04/20/2018 2:14 PM CDT IMPRESSION: Prior mammograms are needed for comparison. An addendum will be issued once these are available for review. OVERALL ASSESSMENT: BI-RADS Category 0 - incomplete, needs comparison to prior images. Dictated from: [facility] 04/20/2018 2:14 PM CDT BILATERAL FULL-FIELD DIGITAL SCREENING MAMMOGRAM WITH CAD DATE: 04/19/2018 12:05 PM HISTORY: Routine screening. TECHNIQUE: Full-field digital craniocaudal and mediolateral oblique projections of both breasts were obtained. Computer aided diagnosis was performed. COMPARISON: No prior studies are available for comparison. BREAST COMPOSITION: Heterogeneously dense, which limits the sensitivity of mammography. FINDINGS: Prior mammograms are needed for comparison. Procedure Note Marylou Cooper MD - 04/20/2018 BILATERAL FULL-FIELD DIGITAL SCREENING MAMMOGRAM WITH CAD DATE: 04/19/2018 12:05 PM HISTORY: Routine screening. TECHNIQUE: Full-field digital craniocaudal and mediolateral oblique projections of both breasts were obtained. Computer aided diagnosis was performed. COMPARISON: No prior studies are available for comparison. BREAST COMPOSITION: Heterogeneously dense, which limits the sensitivity of mammography. FINDINGS: Prior mammograms are needed for comparison. IMPRESSION: Prior mammograms are needed for comparison. An addendum will be issued once these are available for review. OVERALL ASSESSMENT: BI-RADS Category 0 - incomplete, needs comparison to prior images. Dictated from: [facility] Joanne Galindo MD MAMMO ORDERABLES Edited Res ult - Final from Last 3 Months or Most Recently Relevant to Health Maintenance Insurance [facility] BLUE ACCESS/TRUE BLUE PPO Care Teams Cracker Sprayer Relationship Specialty Start Date End Date Zafar Zhang MD [address] [place] [address] PCP - General Family Practice 04/13/18
== END 2024-10-11 13:56 | disposition home or self-care (01) ==
LOC: CHSIMG 13:56
PROVIDERS: PCP Family Medicine; Visit Provider Obstetrics & Gynecology
DX: Z12.31 Encounter for screening mammogram for malignant neoplasm of breast (principal)
CPT/HCPCS: 77063; 77067